=== PATIENT | male | born 1995 | race Caucasian/White ===

== ENCOUNTER 2018-06-08 14:00 | Emergency (ER) | payer OTHER ==
[2018-06-08 14:20] VITALS: BP 138/94; PULSE 100; TEMP 98.3; BMI 19.5
--- NOTE | 2018-06-08 16:09 | PDOC ---
Documentation entered by Veda Mendez SCRIBE, acting as scribe for Jadyn Murphy DO. Jadyn Murphy DO: This documentation has been prepared by the Andrea cordero Xhesika, SCRIBE, under my direction and personally reviewed by me in its entirety. I confirm that the documentation accurately reflects all work, treatment, procedures, and medical decision making performed by me. History of Present Illness - General Chief Complaint: Pain Stated Complaint: TESTICLE PAIN Time Seen by Provider: 06/08/18 14:03 History Source: Legal Guardian(s), Parent(s) Exam Limitations: Other (Non verbal, Autistic. ) - History of Present Illness Initial Comments: 06/08/18 15:06 The patient is a 22 year old male, from an [employer] in [place], accompanied by mother, with a significant past medical history of Autism who presents to the emergency department with testicular pain. As per mother the patient came home for break and on Sunday the mother noticed the patient scratching his testicles over his diaper. As per mother the patient was seen by the nurses at his school and was given antibiotics for testicular redness. As per mother, the patient denies change in odor when urinating or any discharge. Allergies: NKDA Past surgical history: None reported Social history: None reported PCP: Doctor from his program in [place]. Past History - Past Medical History Allergies/Adverse Reactions: Allergies Allergy/AdvReac Type Severity Reaction Status Date / Time No Known Allergies Allergy Verified 06/08/18 14:04 Home Medications: Ambulatory Orders Melatonin HS 06/08/18 Review of Systems - Review of Systems Able to Perform ROS?: No (Non verbal, Autistic) *Physical Exam - Vital Signs Last Vital Signs Temp Pulse Resp BP Pulse Ox 98.3 F 100 H 26 H 138/94 100 06/08/18 14:01 06/08/18 14:01 06/08/18 14:01 06/08/18 14:01 06/08/18 14:01 - Physical Exam Comments: 06/08/18 15:07 GENERAL: Baseline autistic. Awake, alert, and fully oriented, in no acute distress HEAD: No signs of trauma EYES: PERRLA, EOMI, sclera anicteric, conjunctiva clear ENT: Auricles normal inspection, hearing grossly normal, nares patent, oropharynx clear without exudates. Moist mucosa NECK: Normal ROM, supple, no lymphadenopathy, JVD, or masses LUNGS: Breath sounds equal, clear to auscultation bilaterally. No wheezes, and no crackles HEART: (+) tachycardia. Regular rate and rhythm, normal S1 and S2, no murmurs, rubs or gallops ABDOMEN: Soft, nontender, normoactive bowel sounds. No guarding, no rebound. No masses GENITALIA: No testicular tenderness. No cremasteric reflex redness or tenderness. No lesions, bruising, bumps. EXTREMITIES: Normal range of motion, no edema. No clubbing or cyanosis. No cords, erythema, or tenderness NEUROLOGICAL: Cranial nerves II through XII grossly intact. Normal speech, normal gait SKIN: Warm, Dry, normal turgor, no rashes or lesions noted. ED Treatment Course - RADIOLOGY Radiology Studies Ordered: Category Date Time Status SCROTUM AND CONTENTS US [US] Stat Ultrasound 06/08/18 14:42 Ordered Medical Decision Making - Medical Decision Making 06/08/18 15:30 a/p: 22yo autistic male home from school in [facility] with itching of his testicles -per mother, pt was treated with an abx in early may, no rashes, no redness, no swelling, no ttp, no penile discharge, no dysuria -pt with autism and is unable to provide any hx -scratching at his diaper last night, mother concerned the infection was back -pt is circumsized -will send for testicular ultrasound, ua -no acute skin findings, no cellulitis or fungal infection 06/08/18 16:09 b/l hydroceles on ultrasound pending ua 06/08/18 18:00 ua negative discussed ultrasound results and follow up with urology discussed using baby powder in case mild moisture causing itching no currently fungal or bacterial infection stable for dc to home *DC/Admit/Observation/Transfer Diagnosis at time of Disposition: Itch of skin, Hydrocele in adult - Discharge Dispostion Disposition: HOME Condition at time of disposition: Stable Decision to Admit order: No - Referrals Referrals: Greg Olivas MD [Staff Physician] - - Patient Instructions Printed Discharge Instructions: DI for Itching, DI for Hydrocele-Adult Additional Instructions: Please keep the genital region clean and dry. You may use a small amount of baby powder in the diaper to help with the itching. Please follow up with the urologist for further evaluation. Please return to the ED with any further concerns or complaints. - Post Discharge Activity - Attestations Physician Attestion: 06/08/18 18:03 I, Dr. Jadyn Murphy, DO, attest that this document has been prepared under my direction and personally reviewed by me in its entirety. I further attest, that it accurately reflects all work, treatment, procedures and medical decision -making performed by me.
== END 2018-06-08 18:05 | disposition home or self-care (01) ==
LOC: FER 14:00
DX: N43.3 Hydrocele, unspecified (principal); F84.0 Autistic disorder
CPT/HCPCS: 76870-TC; 81003; 99281-25

== ENCOUNTER 2020-09-13 09:11 | Day surgery (SDC) | payer OTHER ==
[2020-09-09 11:20] VITALS: BMI 25.1
[2020-09-13 11:52] VITALS: TEMP 98
[2020-09-13 12:02] VITALS: BP 129/75; PULSE 78
== END 2020-09-13 12:00 | disposition home or self-care (01) ==
LOC: FASU-ENDO 09:11
PROVIDERS: ATTEND Internal Medicine Gastroenterology
PROC: 0DJD8ZZ Inspection of Lower Intestinal Tract, Via Natural or Artificial Opening Endoscopic (ICD-10-PCS; principal; 2020-09-13 11:14)
DX: K59.00 Constipation, unspecified (principal)

== ENCOUNTER 2023-12-05 17:25 | Emergency (ER) | payer OTHER ==
[2023-12-05 17:38] VITALS: BP 113/61; PULSE 72; RESP 18; BMI 22.6
== END 2023-12-05 18:40 | disposition home or self-care (01) ==
LOC: FER 17:25
PROC: 0H9HXZZ Drainage of Right Upper Leg Skin, External Approach (ICD-10-PCS; principal; 2023-12-05)
DX: L72.3 Sebaceous cyst (principal); L02.415 Cutaneous abscess of right lower limb
CPT/HCPCS: 99282-25

== ENCOUNTER 2024-02-23 21:03 | Emergency (ER) | payer OTHER ==
[2024-02-23 21:23] VITALS: BP 148/72; PULSE 92; RESP 16; TEMP 98.7; BMI 23.6
[2024-02-23] MEDS: SODIUM CHLORIDE 0.9% 500 ML INFUS.BAG IV ONE (23:44)
[2024-02-23 23:53] LABS: BASO % 0.7 % (0-2.0); EOS % 3.3 % (0-4.5); HEMATOCRIT 46.4 % (35.4-49); HEMOGLOBIN 15.1 GM/dL (11.7-16.9); LYMPH % 11.2 % (8-40); MCH 26.7 pg (25.7-33.7); MCHC 32.6 g/dl (32.0-35.9); MEAN CELL VOLUME 81.9 fl (80-96); MONO % 6.4 % (3.8-10.2); NEUT % 78.4 % (42.8-82.8); PLATELET COUNT 220 10^3/uL (134-434); RBC 5.66 M/mm3 (4.00-5.60); RDW 13.2 % (11.9-15.9); WHITE BLOOD COUNT 8.8 K/mm3 (4.0-10.0)
[2024-02-23 23:59] LABS: POTASSIUM 4.2 mmol/L (3.5-5.1)
[2024-02-24 00:02] LABS: CALCIUM 9.3 mg/dL (8.5-10.1)
[2024-02-24 00:03] LABS: ALBUMIN 3.8 g/dl (3.4-5.0); MAGNESIUM 2.2 mg/dL (1.8-2.4)
[2024-02-24 00:05] LABS: CREATININE 0.9 mg/dL (0.55-1.3)
[2024-02-24 00:06] LABS: PHOSPHOROUS 3.5 mg/dL (2.5-4.9)
[2024-02-24 00:07] LABS: BILIRUBIN,TOTAL 1.2 mg/dL (0.2-1); TOT PROT 6.8 g/dl (6.4-8.2)
== END 2024-02-24 01:29 | disposition home or self-care (01) ==
LOC: JER 21:03
DX: R55 Syncope and collapse (principal); R45.1 Restlessness and agitation; R05.9 Cough, unspecified; R09.89 Other specified symptoms and signs involving the circulatory and respiratory systems; Z20.822 Contact with and (suspected) exposure to COVID-19
CPT/HCPCS: 0241U-QW; 36415; 80053; 83735; 84100; 84484; 85025; 93005; 93010; 99284-25

== ENCOUNTER 2024-04-15 18:45 | Emergency (ER) | payer OTHER ==
[2024-04-15 18:49] VITALS: BP 107/65; PULSE 89; RESP 18; TEMP 97.8; BMI 21.5
== END 2024-04-15 19:45 | disposition home or self-care (01) ==
LOC: FER 18:45
PROC: 0H9JXZZ Drainage of Left Upper Leg Skin, External Approach (ICD-10-PCS; principal; 2024-04-15)
DX: L02.416 Cutaneous abscess of left lower limb (principal)
CPT/HCPCS: 10061; 99283-25